=== PATIENT | female | born 1970 | race Caucasian/White ===

== ENCOUNTER → 2023-08-22 07:38 | Outpatient (REF) | payer BC, SELFPAY | LOC: MRI 07:38 | PROVIDERS: FAMILY PHYSICIAN Family Medicine; REFERRING PHYSICIAN Orthopaedic Surgery | DX: M79.89 Other specified soft tissue disorders (principal); M25.432 Effusion, left wrist | CPT/HCPCS: 73221 ==

== ENCOUNTER → 2023-12-06 17:37 | Outpatient (REF) | payer BC, SELFPAY | LOC: RAD 17:37 | PROVIDERS: ATTENDING PHYSICIAN Family Medicine; FAMILY PHYSICIAN Family Medicine | DX: M79.642 Pain in left hand (principal); M79.641 Pain in right hand | CPT/HCPCS: 73130 ==

== ENCOUNTER → 2024-06-05 09:01 | Outpatient (REF) | payer BC, SELFPAY | LOC: RAD 09:01 | PROVIDERS: ATTENDING PHYSICIAN Physician Assistant; FAMILY PHYSICIAN Family Medicine | DX: N39.0 Urinary tract infection, site not specified (principal) | CPT/HCPCS: 76770 ==

== ENCOUNTER 2024-07-25 15:24 | Inpatient (IN) | payer BC, SELFPAY ==
[2024-07-25 11:35] VITALS: BP 163/101
[2024-07-25] MEDS: DECADRON 8 MG IV (12:17)
[2024-07-25] MEDS: NSS 500 IV (12:17)
[2024-07-25 12:35] VITALS: BP 162/74
[2024-07-25 12:39] LABS: % Basophils 0.6 % (0-2); % Eosinophils 0.6 % (0-6); % Immature Granulocytes 4.1 % (0-0.5); % Lymphocytes 15.4 % (20.5-51.1); % Monocytes 4.1 % (1.7-9.3); % Neutrophils 75.2 % (42.2-75.2); Absolute Basophils 0.1 10^3/uL (0-0.2); Absolute Eosinophils 0.1 10^3/uL (0-0.7); Absolute Immature Granulocytes 0.5 10^3/uL (0-0.05); Absolute Lymphocytes 1.9 10^3/uL (1.2-3.4); Absolute Monocytes 0.5 10^3/uL (0.1-0.6); Absolute Neutrophils 9.4 10^3/uL (1.4-6.5); Hematocrit 36.7 % (37.0-47.0); Hemoglobin 12.4 g/dL (12.0-16.0); Mean Corp Hgb Conc. 33.8 g/dL (33.0-37.0); Mean Corpuscular Hgb 28.5 pg (27.0-31.0); Mean Corpuscular Volume 84.4 fL (81.0-99.0); Mean Platelet Volume 9.6 fL (7.4-10.4); Nucleated Red Blood Cells % 0 %; Platelet Count 357 10^3/uL (130-400); Red Blood Cell Count 4.35 10^6/uL (4.20-5.40); Red Cell Dist. Width 14.2 % (11.5-14.5); White Blood Cell Count 12.5 10^3/uL (4.8-10.8)
--- NOTE | 2024-07-25 12:43 | ED.GENMED ---
History of Present Illness
General
Chief Complaint: Cough
Source: patient
Exam Limitations: none
Time Seen by Provider: 07/25/24 11:42
History of Present Illness
History of Present Illness:
Patient with wheezing cough for 4 weeks. Has been on a course of cephalosporin, azithromycin, doxycycline with multiple doses of steroids. Still no better. Some shortness of breath at times. Seen by pulmonary today and sent for admission for IV
steroids and further care
Past History
Past History
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 Rheumatoid arthritis.)
ED Past Surgical History: Orthopedic
Social History
Tobacco: Non-smoker
Alcohol: Occasional
Personal:
Living: with family
Review of Systems
Review of Systems
All Other Systems: Not applicable
Constitutional: Denies fever
Respiratory: Denies hemoptysis
Cardiac: Denies chest pain
Phy Exam
Physical Exam
Physical Exam:
GENERAL: Alert and oriented in no apparent distress
EYE: Orbits normal.
NECK: Supple, no significant adenopathy.
ENT: Pharynx without erythema
CARDIAC: Regular rate and rhythm without any obvious murmurs.
LUNGS: Diffuse expiratory wheezing. Occasional coarse cough but
ABDOMEN: Soft, without focal tenderness or distention
NEUROLOGICAL: Alert and oriented , grossly non-focal
SKIN: Warm and dry, no rash or lesion, no discoloration, skin intact.
MUSCULOSKELETAL: No edema,no deformity.Good color
PSYCH: Normal and appropriate interaction.
Course
Orders/Labs/Results
Orders:
Orders
07/25/24 12:06
CT Chest PE Study Urgent
Comment:
Reason For Exam: Persistent cough/shortness of breath
IV Insert/Care/Rem.- Treatment PRN
0.9% Sodium Chloride 500 ml [Nss] 500 ml IV BOLUS
Dexamethasone Sod Phosphate [Decadron] 8 mg IV NOW STA
07/25/24 12:15
Basic Metabolic Panel Urgent
Complete Blood Count/With Diff Urgent
07/25/24 14:58
Ipratropium/Albuterol Sulfate [Duoneb] 3 ml INH R NOW ONE
07/25/24 Dinner
Regular
At Your Request: Full Participation
Does patient need a safe tray?: No
07/25/24 15:09
Admit/Transfer Patient As Directed
Co-Sign Provider:
Level of Care: Inpatient admission
Assign to:: Medical/Surgical
Physician / Group: sandor
Diagnosis: bronchitis
Reason for Hospitalization: bronchitis
Expected length of stay greater than two midnights?: Yes
ELOS- Estimated Length of Stay in days: 2
I certify the patient meets the requirements for IP care: Yes
PRN Pain Medication Management As Directed
May give lesser potent ordered pain med per pt: Yes
preference::
Protocol:: Medication orders for pain may be administered in a
manner that supports deferring to patient preference
when the pt is:
- Requesting an ordered lesser potent pain medication.
Least to most potent pain medications are defined
as: acetaminophen < NSAID < tramadol < opioids
(morphine, oxycodone, hydromorphone).
- Requesting a lesser dose of the same medication IF
ORDERED.
- Requesting a less intrusive route of administration
if both routes are prescribed by the provider (PO <
IV).
07/25/24 15:10
Code Status As Directed
Resuscitation Status: Full Code
07/25/24 15:14
COVID-19 Antigen Urgent
Source: Nasal Swab
Influenza A+B Rapid Molecular Urgent
CHAPITO Source: Nasal Swab
Specimen Description:
07/25/24 18:00
Acetaminophen [Tylenol] 650 mg PO Q4HPRN PRN
Ipratropium/Albuterol Sulfate [Duoneb] 3 ml INH R QID
07/25/24 18:00
Activity As Directed
Activity Level: As Tolerated
Vital Signs As Directed
Frequency: Per unit guidelines
DX Deep Vein Thrombosis Video Routine
07/25/24 20:00
Dexamethasone Sod Phosphate [Decadron] 4 mg IV Q8H
Guaifenesin [Mucinex] 600 mg PO Q12
Heparin 5,000 units SC Q12
07/26/24 05:50
Complete Blood Count/With Diff IN AM
Comprehensive Metabolic Panel IN AM
Abnormal Lab Results
07/25/24
12:15
WBC 12.5 H 10^3/uL
(4.8-10.8)
Hct 36.7 L %
(37.0-47.0)
Abs Immat Gran (auto) 0.5 H 10^3/uL
(0-0.05)
Absolute Neuts (auto) 9.4 H 10^3/uL
(1.4-6.5)
Immature Gran % 4.1 H %
(0-0.5)
Lymphocytes % 15.4 L %
(20.5-51.1)
BUN 22 H mg/dl
(7-17)
Glucose 134 H mg/dl
(70-99)
07/25/24 12:15
07/25/24 12:15
Vital Signs
Initial and Last Documented VS:
Initial Vital Signs
Temp Pulse Resp BP Pulse Ox
97.5 F 74 16 163/101 95
07/25/24 11:35 07/25/24 11:35 07/25/24 11:35 07/25/24 11:35 07/25/24 11:35
Last Documented Vital Signs
Temp Pulse Resp BP Pulse Ox
97.9 F 84 16 147/90 96
07/26/24 07:00 07/26/24 07:23 07/26/24 07:23 07/26/24 07:00 07/26/24 07:23
MDM/Problems Addressed
Differential Diagnosis Includes:
Seen by pulmonary today. Appropriate and ongoing outpatient management with no improvement. Pulmonary recommends inpatient treatment. With history of methotrexate use would need to consider her possible immunocompromise status. IV steroids CT
scan pending admission
*Radiology
Radiology exam reviewed: radiology read reviewed (Bronchitis inflammatory changes. No PE)
*Pulse Oximetry
Patient hypoxic: no
*Critical Care Note
Total Time (30-74mins, 75-104mins- exclusive of procedures): Not Applicable
Data Reviewed
Review of Other/Old Records Reveals: Labs, Records and Other (Office records)
ED Attending Note
-
Portions of this chart may have been created with voice recognition software.� Occasional wrong word or��sound alike� substitutions may have occurred due to the inherent limitations of voice recognition software.
Discharge Plan
Departure
Patient Disposition: Admit
Date of Disposition: 07/25/24
Time of Disposition: 14:58
Presentation/result/management discussed w/ accepting MD/DO: Hospitalist
Discharge Problem:
Ongoing reactive airway disease, Diffuse expiratory wheezing, Failed outpatient management
Interventions
Interventions:
*Risk Screen - Suicide Last Done: 07/25/24 11:35
*General Assessment Last Done: 07/25/24 11:42
*Neglect/Abuse Screening Last Done: 07/25/24 11:35
*ED COVID-19 Vaccine History Last Done: 07/25/24 18:19
*Nursing Disposition Last Done: 07/25/24 18:23
ED- Pulmonary Assessment Last Done: 07/25/24 11:42
Discharge Date and Time
Discharge Date/Time: 07/25/24 18:23
[2024-07-25 12:51] LABS: Blood Urea Nitrogen 22 mg/dl (7-17); Calcium 10.2 mg/dl (8.4-10.2); Carbon Dioxide 24 mmol/L (22-30); Chloride 103 mmol/L (98-107); Glucose 134 mg/dl (70-99); Potassium 3.8 mmol/L (3.5-5.1); Sodium 138 mmol/L (135-145); eGFR > 60.00
--- NOTE | 2024-07-25 15:12 | HPS.HSE ---
Addendum entered and electronically signed by Willie Jaramillo MD 07/25/24 15:56:
Medication reconciliation completed. Will continue all oral medications including leflunomide, Plaquenil.
Original Note:
Family Physician
-
Family Physician: Emi Morales
Chief Complaint
-
cough, shortness of breath
History of Present Illness
54-year-old female past medical history of Behcet's disease, rheumatoid arthritis started on methotrexate in April, Crohn's disease on Stelara, presenting with wheezing and cough for 4 weeks. She has been on a course of cephalosporin,
azithromycin doxycycline and multiple doses of steroids without improvement. She has some shortness of breath and intermittently productive cough. She was seen by pulmonary today Dr. Villar who recommended admission for IV steroids and further
care. She tested herself for COVID and influenza previously which was negative.
She initially had a sore throat earlier on in the month which improved. She has intermittent fevers and chills. Has some chest pain intermittently.
No history of asthma. Never smoked. No alcohol use.
Medical History
Past Medical History
Past Medical History: Reports Other ( Behcet's disease, rheumatoid arthritis started on methotrexate in April, Crohn's disease on Stelara)
Past Surgical History: Reports Tonsilectomy and Other ( History of knee replacements, back surgery)
Social History
Tobacco: Non-smoker
Alcohol: None
Drug: None
Family History
Family History: Not pertinent
Allergies / Home Medications
Allergies reflects when Allergies were last updated in [facility].
Home Medications with original date entered in [facility]
Allergy/Medication List:
Allergies
Allergy/AdvReac Type Severity Reaction Status Date / Time
promethazine HCl Allergy Shortness Verified 07/25/24 11:38
[From Phenergan] of Breath
Home Medications
Control 1 tab PO DAILY 01/27/17
Claritin 10 mg PO DAILY 01/27/17
Plaquenil: 2 tab PO DAILY 01/27/17
ciprofloxacin 0.3 %-dexamethasone 0.1 % ear drops,suspension (Ciprodex) 7.5 ml OT BID 7 days 01/27/17
ciprofloxacin HCl 500 mg tablet 500 mg PO BID #14 tabs 01/27/17
Review of Systems
-
History Source: Patient
A 12 point ROS was completed and negative except as noted: Yes
Constitutional: Reports No Symptoms
EENT: Reports No Symptoms
Respiratory: Reports See HPI
Cardiac: Reports No Symptoms
Abdomen/GI: Reports No Symptoms
: Reports No Symptoms
Musculoskeletal: Reports No Symptoms
Skin: Reports No Symptoms
Neurological: Reports No Symptoms
Endocrine: Reports No Symptoms
Hematologic/Lymphatic: Reports No Symptoms
Psych: Reports No Symptoms
Physical Exam
Vital Signs
Vital Signs
Temp Pulse Resp BP Pulse Ox
97.5 F 72 18 162/74 98
07/25/24 11:35 07/25/24 12:35 07/25/24 12:35 07/25/24 12:35 07/25/24 12:35
Physical Exam
General: Well Developed, Well Nourished and No Apparent Distress
HEENT: NormoCephalic, Moist mucous membranes and Atraumatic
Respiratory: Wheezes
Cardiac: S1/S2 and Regular Rhythm; No Murmur or Rub
GI: Soft, Non Tender, Non Distended and Normal Bowel Sounds; No Organomegaly
Rectal: Deferred by Provider
Musculoskeletal: No Clubbing, No Cyanosis and No Edema
Skin: No Rash
Neuro: Nonfocal/grossly intact
Laboratory Results
-
07/25/24 12:15
07/25/24 12:15
Data Reviewed
-
Lab Data: Labs Reviewed by me
Old Records: Reviewed
Impression/Plan
-
IMPRESSION:
PLAN:
# Severe acute bronchitis likely triggered by viral URI
-Mild expiratory wheezing on examination
-CT chest shows no evidence of pulmonary embolism, or infiltrate, there is mild bilateral bronchial wall thickening
- DuoNebs every 6 hours
- Dexamethasone 4 mg every 8
- Mucinex
-Check COVID and flu
- Patient brought in spirometry results which showed decreased FEV1 below 80% consistent with acute bronchitis
Behcet's disease
Rheumatoid arthritis
- On methotrexate but has been on hold for the past
Crohn's disease
- On Stelara but on hold for the past month
Full code
DVT prophylaxis�heparin
Regular diet
[2024-07-25] MEDS: DUONEB 3 ML INH ×2 (15:15→20:08)
[2024-07-25 15:43] LABS: COVID-19 Antigen Negative (Negative)
[2024-07-25 15:49] VITALS: BP 168/78
[2024-07-25 18:07] VITALS: BP 153/93; BMI 32.2
[2024-07-25] MEDS: DUONEB INH (18:07)
[2024-07-25] MEDS: LOPRESSOR 25 MG PO (20:50)
[2024-07-25] MEDS: MUCINEX 600 MG PO (20:50)
[2024-07-25] MEDS: DECADRON 4 MG IV (20:50)
[2024-07-25] MEDS: FLUSH (NSS) 1 FLUSH IV (20:51)
[2024-07-25] MEDS: ROBITUSSIN AC 10 ML PO (21:00)
[2024-07-25 23:17] VITALS: BP 128/80
--- NOTE | 2024-07-26 00:42 | PTCARENOTE ---
Pt aaox3 able to make her needs known.Denies pain.Pt oriented to room & call [place] in reach.
[2024-07-26] MEDS: DECADRON 4 MG IV ×3 (04:34→20:57)
--- NOTE | 2024-07-26 06:27 | DOWNTIME ---
There was a [employer] Client Finishing Area Operator Downtime on 07/26/2024 from 0200 to 07/27/2023 at 0318 . Downtime documentation of patient's care, including medication administrations, has been reconciled in the electronic record per guidelines. Refer to the
patient's paper chart under the miscellaneous tab to see printed paper medication records and downtime forms.
[2024-07-26 07:00] VITALS: BP 147/90
[2024-07-26] MEDS: DUONEB 3 ML INH ×4 (07:18→19:14)
[2024-07-26 07:39] LABS: ALT (SGPT) 18 U/L (0-35); AST (SGOT) 23 U/L (14-36); Albumin 4.4 g/dl (3.5-5.0); Alkaline Phosphatase 58 U/L (38-126); Blood Urea Nitrogen 24 mg/dl (7-17); Calcium 10.1 mg/dl (8.4-10.2); Carbon Dioxide 25 mmol/L (22-30); Chloride 102 mmol/L (98-107); Estimated Creatinine Clearance 109 ml/min; Glucose 120 mg/dl (70-99); Potassium 4.1 mmol/L (3.5-5.1); Sodium 138 mmol/L (135-145); Total Bilirubin 0.7 mg/dl (0.2-1.3); Total Protein 6.7 g/dl (6.3-8.2); eGFR > 60.00
[2024-07-26 07:46] LABS: % Basophils 0.3 % (0-2); % Immature Granulocytes 2.6 % (0-0.5); % Lymphocytes 10.6 % (20.5-51.1); % Monocytes 5.5 % (1.7-9.3); Absolute Immature Granulocytes 0.4 10^3/uL (0-0.05); Absolute Lymphocytes 1.6 10^3/uL (1.2-3.4); Absolute Monocytes 0.9 10^3/uL (0.1-0.6); Absolute Neutrophils 12.5 10^3/uL (1.4-6.5); Mean Corp Hgb Conc. 33.3 g/dL (33.0-37.0); Mean Corpuscular Hgb 28.4 pg (27.0-31.0); Mean Corpuscular Volume 85.3 fL (81.0-99.0); Mean Platelet Volume 9.7 fL (7.4-10.4); Nucleated Red Blood Cells % 0 %; Platelet Count 364 10^3/uL (130-400); Red Blood Cell Count 4.22 10^6/uL (4.20-5.40); Red Cell Dist. Width 14.6 % (11.5-14.5); White Blood Cell Count 15.4 10^3/uL (4.8-10.8)
[2024-07-26] MEDS: PROTONIX 40 MG PO ×2 (08:14→20:57)
[2024-07-26] MEDS: CLARITIN 10 MG PO (08:14)
[2024-07-26] MEDS: MUCINEX 600 MG PO ×2 (08:14→20:57)
[2024-07-26] MEDS: PLAQUENIL 400 MG PO (08:15)
[2024-07-26] MEDS: VITAMIN D3 (cholecalciferol) 25 MCG PO (08:15)
[2024-07-26] MEDS: FOLVITE 1 MG PO (08:15)
[2024-07-26] MEDS: LOPRESSOR 25 MG PO ×2 (08:15→20:54)
--- NOTE | 2024-07-26 09:08 | CON.PUL ---
Consultation
Consultation Request
Date/Time Consultation Requested: 07/26/24
Date/Time Consultation Performed: 07/26/24
Performing Provider: Martinez
Reason for Consultation: Cough/SOB
Medical History
-
History of Present Illness:
Patient is a 54-year-old female past medical history of Behcet's disease, rheumatoid arthritis started on methotrexate in April, Crohn's disease on Stelara, presenting from outpatient pulmonary office (Dr Sarmiento) with wheezing and cough for 4
weeks. She has been treated with several courses of antibiotics including cephalosporin, azithromycin and doxycycline without improvement. She has had multiple doses of steroids without improvement. She continues with shortness of breath and
intermittent productive cough. Spirometry completed in office 07/25 with mild suggestion of restriction. She has tested herself for COVID and influenza at home and was previously negative.
No history of asthma. Never smoked. No alcohol use.
Past Medical History
Past Medical History: Other (see list below)
Social History
Tobacco: Non-smoker
Alcohol: None
Drug: None
Family History
Family History: Reviewed & Not Pertinent
Allergies / Home Medications
Allergies
Allergy/AdvReac Type Severity Reaction Status Date / Time
promethazine HCl Allergy Shortness Verified 07/25/24 11:38
[From Phenergan] of Breath
Home Medications
�Medication �Instructions �Recorded �Confirmed �Last Taken �Type
loratadine 10 mg tablet 10 mg PO DAILY Allergies 01/27/17 07/25/24 07/25/24 History
azelastine 137 mcg (0.1 %) nasal 1 spray intranasal BIDPRN PRN 07/25/24 07/25/24 Unknown History
spray allergies
cholecalciferol (vitamin D3) 25 25 mcg PO DAILY Supplement 07/25/24 07/25/24 07/25/24 History
mcg (1,000 unit) tablet (Vitamin
D3)
codeine 10 mg-guaifenesin 100 mg/5 10 ml PO HS Cough 04/07/25/24 07/24/24 History
mL oral liquid
esomeprazole magnesium 40 mg 40 mg PO DAILY Gastrointestinal 07/25/24 07/25/24 07/25/24 History
capsule,delayed release (Nexium) Issue
folic acid 1 mg tablet 1 mg PO DAILY Supplement 07/25/24 07/25/24 07/25/24 History
hydroxychloroquine 200 mg tablet 400 mg PO DAILY Autoimmune Disorder 07/25/24 07/25/24 07/25/24 History
(Plaquenil)
leflunomide 10 mg tablet 20 mg PO DAILY Autoimmune Disorder 07/25/24 07/25/24 07/25/24 History
metoprolol tartrate 25 mg tablet 25 mg PO BID Blood Pressure 07/25/24 07/25/24 07/25/24 History
prednisone 10 mg tablet 10 mg PO DIRECTED 07/25/24 07/25/24 07/25/24 History
Anti-Inflammatory 20 mg
soy isoflavone-black cohosh 1 cap PO DAILY Supplement 07/25/24 07/25/24 Unknown History
root-magnolia bark 155 mg capsule
(Estroven)
Review of Systems
-
History Source: Patient
All other systems: Negative unless noted
Vitals / Labs / Diagnostic Testing
Vital Signs
Temp Pulse Resp BP Pulse Ox
97.9 F 84 16 147/90 96
07/26/24 07:00 07/26/24 08:15 07/26/24 07:23 07/26/24 08:15 07/26/24 07:23
Lab Data
07/26/24 05:50
07/26/24 05:50
Microbiology
07/25/24 15:14 Nasal Swab Influenza Types A & B (ISABELL) - Final
Negative for Influenza A & B, NAAT
Negative results must be combined with clinical observations
and patient history.
Nucleic Acid Amplification test (NAAT)performed on the
[employer] platform.
Diagnostic Testing:
Physical Exam
-
HEENT: Normocephalic, Anicteric and Moist Mucous Membranes
Cardiovascular: S1/S2 and Regular Rhythm
Respiratory: Wheeze and Non-Labored Respirations
GI: Soft, Non Distended and Non Tender
Neurology: Awake, Alert, Oriented and No Motor Deficits
Skin: Warm, Dry and Good Color
General: Comfortable and Other (NAD)
Assessment
-
54-year-old female past medical history of Behcet's disease, rheumatoid arthritis started on methotrexate in April, Crohn's disease on Stelara, presenting from outpatient pulmonary office (Dr Sarmiento) with wheezing and cough for 4 weeks. She has
been treated with several courses of antibiotics including cephalosporin, azithromycin and doxycycline without improvement. She has had multiple doses of steroids without improvement. She continues with shortness of breath and intermittent
productive cough. Spirometry completed in office 07/25 with mild suggestion of restriction. She has tested herself for COVID and influenza at home and was previously negative. CT chest obtained and negative. We are consulted for evaluation.
SOB/cough unresponsive to OP treatment
Leukocytosis, likely steroid induced
Enlarging hepatomegaly on CT (>17cm) with elev RHD
Restrictive lung disease, likely multifactorial
Suspect GERD component/silent reflux
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
Seronegative rheumatoid arthritis
Behcet's syndrome (1998)
Essential hypertension
Recurrent UTI
Unspecified dyspareunia
Personal history of urinary (tract) infections
Postmenopausal atrophic vaginitis
L wrist fx repair
H/o spinal surgery(2012)
T&A
[place]
Microdiscectomy
Right knee replacement
Plan
No oxygen was needed on admission, currently saturating >90% on RA
Prior history of lung disease is noted including--Intractable cough with status asthmaticus, sent by Dr Sarmiento, office notes reviewed:
-She has been treated with multiple antibiotics (Cefuroxime, azithromycin, and doxycycline), albuterol via inhaler, ipratropium-Albuterol via nebulizer, methylprednisolone dose pack, prednisone taper starting at 40 mg over 12 days, And a
codeine-containing cough suppressant with guaifenesin.
-She has had 2 courses of prednisone currently tapering by 10 mg every 3 days and now on 20 mg daily. She localizes her cough to her upper chest.Her cough is no worse in cold environments.Her cough is worse after eating. She has not had choking
symptoms. She is not known to have aspiration or swallowing dysfunction.Her cough is worse when supine.
-Spirometry-07/25/24: Spirometry demonstrated mild restrictive lung disease. The forced vital capacity was 2.61 L or 69% of predicted. The FEV1 was 2.11 L or 71% of predicted. The FEV1/FVC ratio was 81%.
-Chest x-ray does not demonstrate interstitial lung disease. Restrictive lung disease is likely related to body habitus and BMI of 33. Her cough may have affected her spirometry..Chest x-ray in urgent [facility] was reported as clear and
also noted to have inflammatory changes right lung.
I am doubtful of asthma diagnosis as she notes she never had a history in the past
She has been evaluated with an telehealth case manager at [facility] [facility] and was paul negative for allergies
She has also not been responding to traditional asthma treatment
Suspect patient has silent reflux exacerbating cough and shortness of breath complaints
She notes that her cough is significantly worse at night and with supine positioning, she sleeps flat on her back at home
She notes that in the past she has had significant hoarse voice, laryngeal erythema
She often coughs up yellowish mucus (please obtain sputum culture though doubtful it is an infection given her on response to prior treatment courses)
Check PCT for completeness
Will change her PPI to BID, recommend elevated sleeping position as well
She is currently wheezing on exam, she does feel better with IV steroids versus p.o. taper
Can transition her to higher p.o. prednisone dose (previously taking 40 mg as an outpatient on her prior outpatient courses)
CXR/CT obtained indicating moderately elevated right hemidiaphragm with hepatomegaly, this has been steadily increasing over the past few years
Prior spirometry in the office demonstrating restrictive pattern, which is likely related to lung impingement from hepatomegaly
I suspect the combination of restricted lung, obesity and silent reflux are causing her constellation of symptoms
LFTs are unremarkable, it is unclear why she has hepatomegaly
She would need full pulmonary function testing to evaluate her lung volumes, which we have discussed pursuing as an outpatient
No history of heart disease, would be helpful to get baseline echo testing to rule out other shortness of breath contributing issues
proBNP negative
Monitor on telemetry
Weight loss measures recommended
Obesity likely contributing to respiratory symptoms
Will need outpatient pulmonary evaluation in our office for PFTs and 6MWT
Reviewed with patient
Risk factors assessed for underlying sleep disordered breathing also noted, recommend outpatient PSG/sleep evaluation
We will follow
Diagnostic Data
Chest X-Ray: 06/08/21- The cardiomediastinal silhouette is within normal limits. There is mild elevation of the right hemidiaphragm. The lungs are clear, without evidence of lobar pneumonia, pleural effusion, pneumothorax, or decompensated congestive
heart failure. Mild degenerative change is seen within the thoracic spine.
Cholecystectomy clips project over the right upper quadrant.
CT Scan: CHEST 07/25/24- 1. Negative for pulmonary embolism.
2. Low lung volumes. No consolidation. There is bilateral mild bronchial wall thickening.
Liver enlarged measuring 17.3 cm (enlarged from prior)
Echo:
PFT's:
Reports and relevant images were personally reviewed.
Total time spent on this consultation __75__ minutes which includes review of history, physical exam, medications, laboratory data, personal review of imaging, extensive review of outpatient records, discussion with care team and respiratory therapy.
[2024-07-26] MEDS: TESSALON PERLES 200 MG PO ×2 (09:31→14:20)
--- NOTE | 2024-07-26 11:46 | W.PN.HOSP.TC ---
Today's Communication/Plan
-
IV steroids
check probnp
Will ask pulmonary input
Assessment / Plan
Assessment / Plan
# Severe acute bronchitis likely triggered by viral URI versus unclear if autoimmune pneumonitis (rheumatoid arthritis) vs medication related
# Subacute cough
- Mild expiratory wheezing on examination
- CT chest shows no evidence of pulmonary embolism, or infiltrate, there is mild bilateral bronchial wall thickening. There is no consolidation or groundglass opacities.
- DuoNebs every 6 hours
- Dexamethasone 4 mg every 8. Agree w/ PPI.
- Mucinex
- Check COVID and flu-negative. Check probnp. Unclear of accuracy of inflammatory markers as history of autoimmune conditions
- Negative for eosinophilia. No Pulm consolidations or opacity.
Behcet's disease
- On Plaquenil and leflunomide
Rheumatoid arthritis
- On methotrexate but has been on hold for the past 4 weeks
Crohn's disease
- On Stelara but on hold for the past month
Full code
DVT prophylaxis�heparin
Anticipated Discharge: Within 24 hours
Subjective/Interval History
-
Date of Service: July 26, 2024
States of dry cough
States was seen by order processing manager in the office and recommended come to the hospital
Denies any fevers
States had productive cough 2 weeks ago.
Objective Data
-
Labs:
Laboratory Results
07/26/24
05:50
WBC 15.4 H
Hgb 12.0
Hct 36.0 L
Plt Count 364
Sodium 138
Potassium 4.1
Chloride 102
Carbon Dioxide 25
BUN 24 H
Creatinine 0.7
Glucose 120 H
Calcium 10.1
Total Bilirubin 0.7
AST 23
ALT 18
Alkaline Phosphatase 58
Vital Signs:
Vital Signs
Temp Pulse Resp BP Pulse Ox
97.9 F 84 16 147/90 96
07/26/24 07:00 07/26/24 08:15 07/26/24 07:23 07/26/24 08:15 07/26/24 08:15
I&O
07/25/24 07/26/24 07/27/24
06:59 06:59 06:59
Intake Total 480 / 480
Balance 480 / 480
Physical Exam
-
General: Well Developed and No Apparent Distress
HEENT: Normocephalic, Atraumatic and Moist Mucous Membranes
Respiratory: Wheezes (mild exp b/l )
Cardiac: Regular Rhythm and S1/S2; Negative Murmur, Rub or Gallop
GI: Soft, Nontender, Nondistended and Normal Bowel Sounds; Negative Organomegaly
Rectal: Deferred by Provider
Musculoskeletal: No Clubbing, No Cyanosis and No Edema
Skin: Negative Rash
Neuro: Awake, Oriented, AO x 3, No Motor Deficits and Nonfocal/Grossly Intact
Psych: Calm
[2024-07-26 13:26] LABS: NT-proBNP 72.4 pg/ml
[2024-07-26 15:00] VITALS: BP 137/88
[2024-07-26 15:08] LABS: Procalcitonin < 0.05 ng/ml (0.0-0.25)
[2024-07-26] MEDS: DUONEB INH (15:37)
[2024-07-26] MEDS: ROBITUSSIN AC 10 ML PO (20:57)
[2024-07-26 23:29] VITALS: BP 131/77
[2024-07-27] MEDS: DECADRON 4 MG IV ×2 (04:51→11:01)
[2024-07-27 07:00] VITALS: BP 141/83
[2024-07-27] MEDS: DUONEB 3 ML INH ×2 (07:14→11:10)
[2024-07-27 07:27] LABS: % Basophils 0.2 % (0-2); % Eosinophils 0.1 % (0-6); % Immature Granulocytes 3.6 % (0-0.5); % Lymphocytes 10.6 % (20.5-51.1); % Neutrophils 78.5 % (42.2-75.2); Absolute Immature Granulocytes 0.5 10^3/uL (0-0.05); Absolute Lymphocytes 1.5 10^3/uL (1.2-3.4); Absolute Neutrophils 11.5 10^3/uL (1.4-6.5); Hemoglobin 11.5 g/dL (12.0-16.0); Mean Corp Hgb Conc. 32.9 g/dL (33.0-37.0); Mean Corpuscular Hgb 28.3 pg (27.0-31.0); Mean Corpuscular Volume 86.2 fL (81.0-99.0); Mean Platelet Volume 9.6 fL (7.4-10.4); Nucleated Red Blood Cells % 0 %; Platelet Count 376 10^3/uL (130-400); Red Blood Cell Count 4.06 10^6/uL (4.20-5.40); Red Cell Dist. Width 14.9 % (11.5-14.5); White Blood Cell Count 14.6 10^3/uL (4.8-10.8)
[2024-07-27 07:49] LABS: Blood Urea Nitrogen 25 mg/dl (7-17); Calcium 9.4 mg/dl (8.4-10.2); Carbon Dioxide 23 mmol/L (22-30); Chloride 105 mmol/L (98-107); Estimated Creatinine Clearance 95 ml/min; Glucose 122 mg/dl (70-99); Potassium 4.1 mmol/L (3.5-5.1); Sodium 139 mmol/L (135-145); eGFR > 60.00
[2024-07-27] MEDS: VITAMIN D3 (cholecalciferol) 25 MCG PO (08:18)
[2024-07-27] MEDS: MUCINEX 600 MG PO (08:18)
[2024-07-27] MEDS: PROTONIX 40 MG PO (08:18)
[2024-07-27] MEDS: FOLVITE 1 MG PO (08:18)
[2024-07-27] MEDS: LOPRESSOR 25 MG PO (08:18)
[2024-07-27] MEDS: CLARITIN 10 MG PO (08:18)
[2024-07-27] MEDS: PLAQUENIL 400 MG PO (08:18)
[2024-07-27] MEDS: TESSALON PERLES 200 MG PO (08:22)
--- NOTE | 2024-07-27 09:09 | W.PN.PUL3 ---
Today's Communication / Plan
-
Better today, will transition IV steroids to PO (can complete 50mg x 5 days, then stop--can taper if needed if symptoms persist)
ECHO reviewed, normal
Continue PPI BID at home, follow up OP GI/Hep
OP Pulm FU to be arranged, with full PFTs
Discharge planning per team today
Assessment
-
54-year-old female past medical history of Behcet's disease, rheumatoid arthritis started on methotrexate in April, Crohn's disease on Stelara, presenting from outpatient pulmonary office (Dr Sarmiento) with wheezing and cough for 4 weeks. She has
been treated with several courses of antibiotics including cephalosporin, azithromycin and doxycycline without improvement. She has had multiple doses of steroids without improvement. She continues with shortness of breath and intermittent
productive cough. Spirometry completed in office 07/25 with mild suggestion of restriction. She has tested herself for COVID and influenza at home and was previously negative. CT chest obtained and negative. We are consulted for evaluation.
SOB/cough unresponsive to OP treatment
Leukocytosis, likely steroid induced
Enlarging hepatomegaly on CT (>17cm) with elev RHD
Restrictive lung disease, likely multifactorial
Suspect GERD component/silent reflux
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
Seronegative rheumatoid arthritis
Behcet's syndrome (1998)
Essential hypertension
Recurrent UTI
Unspecified dyspareunia
Personal history of urinary (tract) infections
Postmenopausal atrophic vaginitis
L wrist fx repair
H/o spinal surgery(2012)
T&A
Tona
Microdiscectomy
Right knee replacement
Plan
No oxygen was needed on admission, currently saturating >90% on RA
Prior history of lung disease is noted including--Intractable cough with status asthmaticus, sent by Dr Sarmiento, office notes reviewed:
-She has been treated with multiple antibiotics (Cefuroxime, azithromycin, and doxycycline), albuterol via inhaler, ipratropium-Albuterol via nebulizer, methylprednisolone dose pack, prednisone taper starting at 40 mg over 12 days, And a
codeine-containing cough suppressant with guaifenesin.
-She has had 2 courses of prednisone currently tapering by 10 mg every 3 days and now on 20 mg daily. She localizes her cough to her upper chest.Her cough is no worse in cold environments.Her cough is worse after eating. She has not had choking
symptoms. She is not known to have aspiration or swallowing dysfunction.Her cough is worse when supine.
-Spirometry-07/25/24: Spirometry demonstrated mild restrictive lung disease. The forced vital capacity was 2.61 L or 69% of predicted. The FEV1 was 2.11 L or 71% of predicted. The FEV1/FVC ratio was 81%.
-Chest x-ray does not demonstrate interstitial lung disease. Restrictive lung disease is likely related to body habitus and BMI of 33. Her cough may have affected her spirometry..Chest x-ray in urgent care patient first was reported as clear and
also noted to have inflammatory changes right lung.
I am doubtful of asthma diagnosis as she notes she never had a history in the past
She has been evaluated with an market superintendent at [place] and was paul negative for allergies
She has also not been responding to traditional asthma treatment
Suspect patient has silent reflux exacerbating cough and shortness of breath complaints
She notes that her cough is significantly worse at night and with supine positioning, she sleeps flat on her back at home
She notes that in the past she has had significant hoarse voice, laryngeal erythema
She often coughs up yellowish mucus (please obtain sputum culture though doubtful it is an infection given her on response to prior treatment courses)
PCT negative
Continue PPI to BID, recommend elevated sleeping position as well
She is currently wheezing on exam, she does feel better with IV steroids versus p.o. taper
Can transition her to higher p.o. prednisone dose (previously taking 40 mg as an outpatient on her prior outpatient courses)
Would do 50mg x 5 days then stop
CXR/CT obtained indicating moderately elevated right hemidiaphragm with hepatomegaly, this has been steadily increasing over the past few years
Prior spirometry in the office demonstrating restrictive pattern, which is likely related to lung impingement from hepatomegaly
I suspect the combination of restricted lung, obesity and silent reflux are causing her constellation of symptoms
LFTs are unremarkable, it is unclear why she has hepatomegaly
She would need full pulmonary function testing to evaluate her lung volumes, which we have discussed pursuing as an outpatient
No history of heart disease, baseline ECHO negative
proBNP negative
Monitor on telemetry
Weight loss measures recommended
Obesity likely contributing to respiratory symptoms
Will need outpatient pulmonary evaluation in our office for PFTs and 6MWT
Reviewed with patient
Risk factors assessed for underlying sleep disordered breathing also noted, recommend outpatient PSG/sleep evaluation
Discharge planning today per team
Diagnostic Data
Chest X-Ray: 06/08/21- The cardiomediastinal silhouette is within normal limits. There is mild elevation of the right hemidiaphragm. The lungs are clear, without evidence of lobar pneumonia, pleural effusion, pneumothorax, or decompensated congestive
heart failure. Mild degenerative change is seen within the thoracic spine.
Cholecystectomy clips project over the right upper quadrant.
CT Scan: CHEST 07/25/24- 1. Negative for pulmonary embolism.
2. Low lung volumes. No consolidation. There is bilateral mild bronchial wall thickening.
Liver enlarged measuring 17.3 cm (enlarged from prior)
Echo: 07/26- Normal left ventricular size, wall thickness and systolic function. No regional wall motion abnormalities are seen. LV ejection fraction is 55% by volumetric assessment. Normal diastolic function. Normal right ventricular size and
function. No significant valvular pathology No prior study for comparison
PFT's:
Reports and relevant images were personally reviewed.
Total time spent on this consultation __55__ minutes which includes review of history, physical exam, medications, laboratory data, personal review of imaging, extensive review of outpatient records, discussion with care team and respiratory therapy.
Subjective Data
-
Date of Service:
Date of Service: July 27, 2024
Chief Complaint: Pulmonary Follow Up
Subjective:
Doing better today, feels her wheezing has improved
Stable on RA, would like to go home
Objective Data
Data Reviewed
Vital Signs / I&O / Oxygen:
Vital Signs
Temp Pulse Resp BP Pulse Ox
98.2 F 71 16 141/83 97
07/27/24 07:00 07/27/24 08:18 07/27/24 07:21 07/27/24 08:18 07/27/24 07:21
Intake and Output
07/26/24 07/27/24 07/28/24
06:59 06:59 06:59
Intake Total 480 / 480 960 / 960
Balance 480 / 480 960 / 960
SaO2 97
Physical Exam
General: Comfortable and Other (NAD)
HEENT: Normocephalic, Anicteric and Moist Mucous Membranes
Cardiovascular: S1-S2 and Regular Rhythm
Respiratory: Wheeze (slight) and Non-Labored Respirations
GI: Soft, Non Distended and Non Tender
Neurology: Awake, Alert, Oriented and No Motor Deficits
Skin: Warm, Dry and Good Color
Labs/Micro/Reports
Lab Data
07/27/24 05:46
07/27/24 05:46
Microbiology
07/26/24 14:23 Sputum Gram Stain - Preliminary
07/25/24 15:14 Nasal Swab Influenza Types A & B (ISABELL) - Final
Negative for Influenza A & B, NAAT
Negative results must be combined with clinical observations
and patient history.
Nucleic Acid Amplification test (NAAT)performed on the
[employer] platform.
--- NOTE | 2024-07-27 09:15 | CM ---
Alert awake oriented patient who lives with her Kurt in a 2 story home with 2 steps to enter and 13 to bed bathroom. She is independent in driving and in all activities of daily living.Offered VN she declined.
No adaptive devices
Never had VN/SNF
Pharmacy [facility] [place]
PCP Dr Morales
PLAN Home no needs
--- NOTE | 2024-07-27 11:37 | W.PN.HOSP.TC ---
Today's Communication/Plan
-
po prednisone-ppi
OP pulm and GI f/u
Assessment / Plan
Assessment / Plan
# Severe acute bronchitis likely triggered by viral URI versus unclear if autoimmune pneumonitis (rheumatoid arthritis) vs medication related vs. restrictive disease pattern
# Subacute cough
- Mild expiratory wheezing on examination
- CT chest shows no evidence of pulmonary embolism, or infiltrate, there is mild bilateral bronchial wall thickening. There is no consolidation or groundglass opacities.
- DuoNebs every 6 hours
- Dexamethasone 4 mg every 8. Agree w/ PPI twice daily. Switch to p.o. prednisone. Patient is now on 80 mg prednisone. States she will do 60 mg with a slow taper.
- Mucinex
- Check COVID and flu-negative. Echocardiogram with normal ejection fraction. No wall motion abnormality or valvular disease. Unclear of accuracy of inflammatory markers as history of autoimmune conditions
-States she had endoscopy and colonoscopy 2 months ago. Recommend to follow-up with her primary gastroenterology for hepatomegaly.
- Negative for eosinophilia. No Pulm consolidations or opacity.
Behcet's disease
- On Plaquenil and leflunomide
Rheumatoid arthritis
- On methotrexate but has been on hold for the past 4 weeks
Crohn's disease
- On Stelara but on hold for the past month
Full code
DVT prophylaxis�heparin
Dispo Home today with p.o. prednisone taper. Outpatient pulmonary follow-up.
More than 30 minutes spent in discharge including
Final examination of the patient
Summarizing hospital stay
Instructions for continuing care to all relevant caregivers
Preparation of discharge records, prescriptions, and referral forms
Total time spent (in minutes): 42
Anticipated Discharge: Today
Subjective/Interval History
-
Date of Service: July 27, 2024
Patient states he is feeling significantly better
Having intermittent yellow phlegm
Ambulated in the hallway yesterday. Intermittent coughing.
Objective Data
-
Labs:
Laboratory Results
07/27/24
05:46
WBC 14.6 H
Hgb 11.5 L
Hct 35.0 L
Plt Count 376
Sodium 139
Potassium 4.1
Chloride 105
Carbon Dioxide 23
BUN 25 H
Creatinine 0.8
Glucose 122 H
Calcium 9.4
Vital Signs:
Vital Signs
Temp Pulse Resp BP Pulse Ox
98.2 F 70 16 141/83 97
07/27/24 07:00 07/27/24 11:16 07/27/24 11:16 07/27/24 08:18 07/27/24 11:16
I&O
07/26/24 07/27/24 07/28/24
06:59 06:59 06:59
Intake Total 480 / 480 960 / 960
Balance 480 / 480 960 / 960
Physical Exam
-
General: Well Developed, No Apparent Distress and Obese
HEENT: Normocephalic, Atraumatic and Moist Mucous Membranes
Respiratory: Clear to Auscultation (No wheezing heard today)
Cardiac: Regular Rhythm and S1/S2; Negative Murmur, Rub or Gallop
GI: Soft, Nontender, Nondistended and Normal Bowel Sounds; Negative Organomegaly
Rectal: Deferred by Provider
Musculoskeletal: No Clubbing, No Cyanosis and No Edema
Skin: Negative Rash
Neuro: Awake, Alert, Oriented, AO x 3, No Motor Deficits and Nonfocal/Grossly Intact
Psych: Calm
--- NOTE | 2024-07-27 12:08 | W.DCSUMMARY ---
Discharge Summary
Discharge Data
Date of Admission: 07/25/24
Date of Discharge: 07/27/24
-
Pending Results: No
Hospital Course
54-year-old female past medical history of Behcet's disease, rheumatoid arthritis, Crohn's disease who is presenting from candy attendant office with complaints of shortness of breath and subacute cough x 4 weeks. Patient states her symptoms on
coughing started after she had a viral upper respiratory tract infection. Patient states for the past 4 weeks she has tried 3 courses of antibiotics and also steroid tapering regimen. Patient went to see candy attendant who did incentive spirometry
in the office with restrictive pattern. Patient was recommended come to the hospital and underwent CAT scan. CT PE study was found to be negative. No focal infiltrates were noted on the CAT scan. Financial Systems Analyst was consulted. Patient was started
on IV steroids and bronchodilators. Patient symptomatology improved significantly. Patient was afebrile. Patient also underwent echocardiogram with normal ejection fraction and no wall motion abnormality. Patient symptomatology was
multifactorial with viral URI and immunosuppressant state versus restrictive disease pattern due to obesity and hepatomegaly. Patient symptomology improved and will be discharged on 60 mg of prednisone. Patient understand to stop prednisone if her
symptoms improved. Patient already has appointment with her outpatient candy attendant Dr. Villar on 08/03/24 during which time further steroids regimen can be discussed if need to be continued versus discontinued. Patient understand that if her
symptomology improves then discussed with pulmonary about discontinuation of steroids. Also recommended to take PPI twice daily for now. All patient questions were answered and she was agreeable and amenable discharge planning.
Discharge Plan
-
Patient Disposition: Home (Routine Discharge)
Discharge Diagnosis/Procedures: Shortness of breath and cough likely multifactorial with restrictive disease pattern versus recent viral URI
Leukocytosis
Condition: Fair
Diet: As tolerated
Activity: As tolerated
Driving Restrictions: As prior to admission
Activity Restrictions/Additional Instructions:
Follow-up with your primary gastroenterology for hepatomegaly.
Referrals:
Dk Sarmiento MD [Active] - in one to two weeks (PFT)
Emi Morales DO [Family Provider] -
Prescriptions:
New
benzonatate 100 mg Capsule
200 mg PO TIDPRN PRN (Reason: severe cough) Qty: 21 0RF
guaifenesin 600 mg Tablet Extended Release 12hr
600 mg PO Q12 Qty: 20 0RF
prednisone 10 mg Tablet
See Rx Instructions .ROUTE .COMPLEX Qty: 84 0RF
Rx Instructions:
Take By Mouth:
60 mg daily x4 days, 50mg daily x4 days, 40 mg daily x4 days,
30 mg daily x4 days, 20 mg daily x4 days,
10 mg daily x4 days
albuterol sulfate 1.25 mg/3 mL solution for nebulization
1.25 mg inhalation QID Qty: 75 0RF
Continued
loratadine 10 mg Tablet
10 mg PO DAILY
leflunomide 10 mg Tablet
20 mg PO DAILY
folic acid 1 mg Tablet
1 mg PO DAILY
codeine-guaifenesin 10-100 mg/5 mL liquid
10 ml PO HS
azelastine 137 mcg (0.1 %) [place],Non-Aerosol
1 spray INTRANASAL BIDPRN PRN (Reason: allergies)
hydroxychloroquine [Plaquenil] 200 mg Tablet
400 mg PO DAILY
metoprolol tartrate 25 mg Tablet
25 mg PO BID
cholecalciferol (vitamin D3) [Vitamin D3] 25 mcg (1,000 unit) Tablet
25 mcg PO DAILY
Estroven 155 mg Capsule
1 cap PO DAILY
Changed
esomeprazole magnesium [Nexium] 40 mg Capsule,Delayed Release(Dr/Ec)
40 mg PO BID Qty: 0 0RF
Discontinued
prednisone 10 mg Tablet
10 mg PO DIRECTED
Rx Instructions:
take 40mg daily for 3 days then 30mg daiyl for 3 days then 20mg daily for 3 days then 10mg daily for 3 days
Discharge Orders:
Discharge Patient (As Directed); Ordered 07/27/24
Ordered By: Diego Morris
Discharge Date and Time
Discharge Date/Time: 07/27/24 13:31
Print Language: MARTINIQU[place]IS
[2024-07-27 12:30] VITALS: BP 131/77
--- NOTE | 2024-07-27 12:48 | CM ---
MD entered order for discharge.
Pt said she is ready for discharge
Offered VN she declined need.
Her dgt Lovely will drive her home.
PLAN Home no needs
== END 2024-07-27 13:31 | disposition home or self-care (01) | DRG 202 ==
LOC: 4 EAST ACU 15:24
PROVIDERS: ADMITTING PHYSICIAN Hospitalist; ATTENDING PHYSICIAN Hospitalist; CONSULT PHYSICIAN Internal Medicine; EMERGENCY PHYSICIAN Emergency Medicine; FAMILY PHYSICIAN Family Medicine
DX: J20.9 Acute bronchitis, unspecified (principal); K50.90 Crohn's disease, unspecified, without complications; M35.2 Behcet's disease; J06.9 Acute upper respiratory infection, unspecified; M06.00 Rheumatoid arthritis without rheumatoid factor, unspecified site; E66.9 Obesity, unspecified; Z68.32 Body mass index [BMI] 32.0-32.9, adult; Z11.52 Encounter for screening for COVID-19; Z79.899 Other long term (current) drug therapy; I10 Essential (primary) hypertension; K21.9 Gastro-esophageal reflux disease without esophagitis; Z87.440 Personal history of urinary (tract) infections; N95.2 Postmenopausal atrophic vaginitis; Z96.651 Presence of right artificial knee joint
CPT/HCPCS: 71275; 80048; 80053; 83880; 84145; 85025; 87070; 87205; 87502; 87811; 93306; 94640; 96365; 96375; 99284; Q9967

== ENCOUNTER → 2024-12-12 06:43 | Outpatient (REF) | payer BC, SELFPAY | LOC: MRI 06:43 | PROVIDERS: ATTENDING PHYSICIAN Orthopaedic Surgery Adult Reconstructive Orthopaedic Surgery; FAMILY PHYSICIAN Family Medicine | DX: M71.21 Synovial cyst of popliteal space [Baker], right knee (principal); M94.261 Chondromalacia, right knee | CPT/HCPCS: 73721 ==